=== PATIENT | male | born 1965 | race African-American/Black ===

== ENCOUNTER 2017-06-17 21:25 | Emergency (ER) | payer MEDICARE, OTHER ==
[~2017-06-17] VITALS: Ht 180.3 cm; Wt 89.8 kg
[2017-06-17 21:26] VITALS: BP 163/93
== END 2017-06-17 23:26 | disposition home or self-care (01) ==
LOC: ED 23:20
DX: S16.1XXA Strain of muscle, fascia and tendon at neck level, initial encounter (principal); S76.011A Strain of muscle, fascia and tendon of right hip, initial encounter; M47.892 Other spondylosis, cervical region; M62.838 Other muscle spasm; V73.6XXA Passenger on bus injured in collision with car, pick-up truck or van in traffic accident, initial encounter; Y93.89 Activity, other specified; Y99.8 Other external cause status; Y92.410 Unspecified street and highway as the place of occurrence of the external cause
CPT/HCPCS: 72050; 99284

== ENCOUNTER 2018-01-28 11:34 | Emergency (ER) | payer MEDICARE, OTHER ==
[~2018-01-28] VITALS: Ht 180.3 cm; Wt 83.1 kg
[2018-01-28 11:51] VITALS: BP 126/76
[2018-01-28] MEDS ORDERED: CYCL5TAB PO (12:04)
[2018-01-28] MEDS ORDERED: HYDR-3240 PO (12:04)
[2018-01-28] MEDS ORDERED: CYCLOBENZAPRINE 10 MG TABLET ONE (12:06)
[2018-01-28] MEDS ORDERED: KETOROLAC 30 MG/1 ML ONE (12:06)
[2018-01-28] MEDS ORDERED: CYCLOBENZAPRINE 10 MG TABLET PO ONE (12:30)
[2018-01-28] MEDS ORDERED: KETOROLAC 30 MG/1 ML IM ONE (12:30)
== END 2018-01-28 12:34 | disposition home or self-care (01) ==
LOC: ED 12:28
DX: S39.012A Strain of muscle, fascia and tendon of lower back, initial encounter (principal); X58.XXXA Exposure to other specified factors, initial encounter; Y93.89 Activity, other specified; Y92.89 Other specified places as the place of occurrence of the external cause; Y99.8 Other external cause status
CPT/HCPCS: 96372; 99283; J1885

== ENCOUNTER 2018-02-09 21:47 | Emergency (ER) | payer MEDICARE ==
[~2018-02-09] VITALS: Ht 177.8 cm; Wt 80.6 kg
[~2018-02-09 21:47] MED LIST: CYCL5TAB PO; HYDR-3240 PO
[2018-02-09 21:52] VITALS: BP 134/91
[2018-02-09] MEDS ORDERED: ACETAMINOPHEN 325 MG TABLET ONE (22:40)
[2018-02-09] MEDS ORDERED: ACETAMINOPHEN 325 MG TABLET PO ONE (23:00)
== END 2018-02-09 23:00 | disposition home or self-care (01) ==
LOC: ED 22:45
DX: M54.5 Low back pain (principal); F17.210 Nicotine dependence, cigarettes, uncomplicated; G89.29 Other chronic pain
CPT/HCPCS: 99282

== ENCOUNTER 2018-06-06 02:29 | Emergency (ER) | payer MEDICARE ==
[~2018-06-06] VITALS: Ht 180.3 cm; Wt 83.0 kg
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
[2018-06-06 03:47] LABS: MEAN CORPUSCULAR HEMOGLOBIN 31.5 pg (27.5-34.5); MEAN CORPUSCULAR HGB CONC 33.3 g/dL (33.2-36.2); MEAN CORPUSCULAR VOLUME 94.6 fL (81-97); MEAN PLATELET VOLUME 8.2 fL (7.4-10.4); PLATELET COUNT 247 x10^3/uL (130-400); RED BLOOD COUNT 4.58 x10^6/uL (4.38-5.82); RED CELL DISTRIBUTION WIDTH 14.4 % (9.4-14.8)
[2018-06-06 03:51] LABS: ALBUMIN 3.6 g/dL (3.4-5.0); ANION GAP 8 mmol/L (5-15); CALCIUM 8.6 mg/dL (8.5-10.1); CHLORIDE 107 mmol/L (98-107); CREATININE 1.07 mg/dL (0.7-1.3)
[2018-06-06 03:57] LABS: ACETAMINOPHEN < 2 mcg/mL (10-30); SALICYLATE LEVEL < 1.7 mg/dL (2.8-20.0)
--- NOTE | 2018-06-06 03:57 | NUR ---
PT RESTING ON GURNEY IN ROOM 2. CALM AND COOPERATIVE AT THIS TIME. PROVIDED WITH WARM BLANKET AND WATER. SITTER OUTSIDE DOOR, MONITORING PT. ROOM REMAINS SECURE.
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
[2018-06-06 04:35] LABS: BASOPHILS # (AUTO) 0.01 x10^3/uL (0-0.1); BASOPHILS % (AUTO) 0 % (0-1); EOSINOPHILS # (AUTO) 0.26 x10^3/uL (0-0.4); EOSINOPHILS % (AUTO) 5 % (1-7); LYMPHOCYTES % (AUTO) 24 % (22-44); MD SCAN; MONOCYTES # (AUTO) 0.68 x10^3/uL (0.2-0.8); MONOCYTES % (AUTO) 12 % (2-9); NEUTROPHILS # (AUTO) 3.41 x10^3/uL (1.8-6.8); NEUTROPHILS % (AUTO) 59 % (42-75)
[2018-06-06 05:11] LABS: AMPHETAMINE SCREEN, URINE Negative (Negative); BARBITURATE SCREEN, URINE Negative (Negative); BENZODIAZEPINE SCREEN, URINE Negative (Negative); CANNABINOID SCREEN, URINE Negative (Negative); COCAINE SCREEN, URINE Negative (Negative); METHADONE SCREEN, URINE Negative (Negative); OPIATE SCREEN, URINE Negative (Negative)
--- NOTE | 2018-06-06 05:33 | NUR ---
PER DR. LOUIS ([facility]) PT WILL BE PLACED ON A HOLD FOR PSYCHOSIS.
--- NOTE | 2018-06-06 05:36 | NUR ---
SPOKE TO PAUL ART ON 3E WHO STATED THEY WOULD BE TAKING THIS PT AFTER HIS INSURANCE IS VERIFIED, HOWEVER THAT CANNOT BE DONE UNTIL AFTER 629
--- NOTE | 2018-06-06 05:58 | NUR ---
PER 3E STAFF PT WILL HAVE INSURANCE VERIFIED BY DAY SHIFT IN ORDER TO GO TO THE FLOOR. STRAINER MILL OPERATOR DOES NOT KNOW HOW TO VERIFY INSURANCE FOR MEDICARE DAYS
--- NOTE | 2018-06-06 06:31 | NUR ---
PT NOW RESTING ON GURNEY WITH EYES CLOSED. RESPRIATIONS EVEN AND UNLABORED. ROOM REMAINS SECURE, SITTER OUTSIDE DOOR.
--- NOTE | 2018-06-06 07:06 | NUR ---
REPORT TO PAUL SORENSON
--- NOTE | 2018-06-06 07:10 | NUR ---
PT IS RESTING ON GURNEY WITH EYES CLOSED, RESPIRATIONS ARE EVEN AND UNLABORED. SITTER IS WITHIN DIRECT LINE OF SIGHT.
--- NOTE | 2018-06-06 08:05 | NUR ---
PT PLACED ON HOSPITAL BED FOR COMFORT. WAITING FOR ROOM ASSIGNMENT ON 3E OR ACCEPTANCE TO PSYCHE FACILITY. PO FLUIDS AT BEDSIDE.
--- NOTE | 2018-06-06 09:25 | NUR ---
VSS. PT ATE SMALL AMOUNT OF BREAKFAST. TAKING PO FLUIDS WELL. SITTER IS AT BEDSIDE.
--- NOTE | 2018-06-06 11:10 | NUR ---
Per Yohana, patient denied from [facility] because there is no accepting provider.
--- NOTE | 2018-06-06 11:10 | NUR ---
No admitting psych doctor for 3E.
--- NOTE | 2018-06-06 11:41 | NUR ---
RECEIVED REPORT FROM YAS MILLER
--- NOTE | 2018-06-06 12:22 | NUR ---
PT SLEEPING AT THIS TIME
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
--- NOTE | 2018-06-06 13:41 | NUR ---
diet tray ordered for pt. pt given 7-up.
--- NOTE | 2018-06-06 14:00 | NUR ---
PT GIVEN MEAL TRAY.
[2018-06-06] MEDS ORDERED: LORazepam 2 MG/ML, 1ML ONE (15:05)
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
[2018-06-06] MEDS ORDERED: LORazepam 2 MG/ML, 1ML IM ONE (16:00)
--- NOTE | 2018-06-06 16:26 | NUR ---
PT GIVEN MYKEL CRACKERS AND PUDDING. SITTER AT BEDSIDE.
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
--- NOTE | 2018-06-06 17:30 | NUR ---
DIET TRAY ORDERED. PT SLEEPING AT THIS TIME.
--- NOTE | 2018-06-06 18:19 | NUR ---
PT GIVEN MEAL TRAY AND ATE 100%. PT COOPERATIVE AT THIS TIME. ROOM SECURED AND SITTER OUTSIDE OF ROOM
--- NOTE | 2018-06-06 19:04 | NUR ---
REPORT GIVEN TO DAISY MILLER.
--- NOTE | 2018-06-06 19:07 | NUR ---
received report from PAUL Henderson, patient sleeping at this time.
--- NOTE | 2018-06-06 19:33 | NUR ---
patient awake and asking pudding. provided.
--- NOTE | 2018-06-06 19:59 | NUR ---
Throughput RN: Packet faxed to [facility], Shivam Ferreira, BORIS, RB, [facility] and [facility]
--- NOTE | 2018-06-06 20:14 | NUR ---
May from [facility] called and she is reviewing the chart
--- NOTE | 2018-06-06 20:36 | NUR ---
spoke to PAUL Nelson ( [facility] ) and gave report.
[2018-06-06 20:50] VITALS: BP 132/90
[2018-06-06] MEDS ORDERED: RISPERIDONE 1 MG TABLET PO SCH (21:00)
--- NOTE | 2018-06-06 21:13 | NUR ---
REM here to transport patient to [facility].
--- NOTE | 2018-06-06 21:15 | NUR ---
all belongings given back to [facility] staff.
[2018-06-06] MEDS ORDERED: LORazepam 1MG TABLET PO ONE (22:00)
== END 2018-06-06 21:18 ==
LOC: ED 05:46
DX: F32.0 Major depressive disorder, single episode, mild (principal); F10.120 Alcohol abuse with intoxication, uncomplicated; Y90.9 Presence of alcohol in blood, level not specified
CPT/HCPCS: 36415; 80048; 80307; 80329; 82040; 85025; 96372; 99285; J2060; 99284; G0480

== ENCOUNTER 2018-08-15 10:16 | Emergency (ER) | payer MEDICAID, MEDICARE ==
[~2018-08-15] VITALS: Ht 177.8 cm; Wt 81.6 kg
[2018-08-15 10:23] VITALS: BP 147/96
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
[2018-08-15 11:14] LABS: BASOPHILS # (AUTO) 0.03 x10^3/uL (0-0.1); BASOPHILS % (AUTO) 0 % (0-1); EOSINOPHILS # (AUTO) 0.14 x10^3/uL (0-0.4); EOSINOPHILS % (AUTO) 2 % (1-7); LYMPHOCYTES # (AUTO) 1.29 x10^3/uL (1-3.4); LYMPHOCYTES % (AUTO) 20 % (22-44); MD NO; MEAN CORPUSCULAR HEMOGLOBIN 31.4 pg (27.5-34.5); MEAN CORPUSCULAR HGB CONC 33.5 g/dL (33.2-36.2); MEAN CORPUSCULAR VOLUME 93.7 fL (81-97); MEAN PLATELET VOLUME 7.9 fL (7.4-10.4); MONOCYTES # (AUTO) 0.46 x10^3/uL (0.2-0.8); MONOCYTES % (AUTO) 7 % (2-9); NEUTROPHILS # (AUTO) 4.46 x10^3/uL (1.8-6.8); NEUTROPHILS % (AUTO) 70 % (42-75); PLATELET COUNT 258 x10^3/uL (130-400); RED CELL DISTRIBUTION WIDTH 14.9 % (9.4-14.8)
[2018-08-15 11:25] LABS: ALBUMIN 3.4 g/dL (3.4-5.0); ANION GAP 6 mmol/L (5-15); CALCIUM 8.7 mg/dL (8.5-10.1); CHLORIDE 104 mmol/L (98-107); SALICYLATE LEVEL < 1.7 mg/dL (2.8-20.0)
[2018-08-15 11:27] LABS: ACETAMINOPHEN < 2 mcg/mL (10-30); CREATININE 0.94 mg/dL (0.7-1.3)
[2018-08-15 11:28] LABS: AMPHETAMINE SCREEN, URINE Negative (Negative); BARBITURATE SCREEN, URINE Negative (Negative); BENZODIAZEPINE SCREEN, URINE Negative (Negative); CANNABINOID SCREEN, URINE Negative (Negative); COCAINE SCREEN, URINE Positive (Negative); METHADONE SCREEN, URINE Negative (Negative); OPIATE SCREEN, URINE Negative (Negative)
--- NOTE | 2018-08-15 12:17 | NUR ---
SPOKE W/ MD FROM [facility] WHO STATES THEY WILL TELEPSYCH PT SHORTLY. SI LUNCH TRAY LEFT W/ SITTER. PT TO BE PROVIDED W/ LUNCH ONCE SOC CMPD. ROOM REMAINS SECURE.
--- NOTE | 2018-08-15 12:26 | NUR ---
[facility] MD SPEAKING W/ PT AT THIS TIME.
--- NOTE | 2018-08-15 12:42 | NUR ---
SPOKE W/ SOC WHO STATES PT IS OKAY TO DC HOME. ERP NOTIFIED.
--- NOTE | 2018-08-15 13:14 | NUR ---
PER JUAN CARLOS DELGADO AND ERP DR. EVANS PT TO BE DC'D. PT PROVIDED W/ BELONGINGS. AWAITING DC PAPERWORK.
--- NOTE | 2018-08-15 13:21 | NUR ---
LOOKED FOR PT THROUGHOUT UNIT IN ALL ROOMS AND RR. PT NOT FOUND. GOWN THROWN ON THE GURNEY. ALL PERSONAL BELONGINGS GONE. PER SITTER PT WAS SEEN POWERWALKING OUT OF HOSPITAL.
== END 2018-08-15 13:24 | disposition left against medical advice (07) ==
LOC: ED 10:35
DX: F32.0 Major depressive disorder, single episode, mild (principal); M54.9 Dorsalgia, unspecified; G89.29 Other chronic pain; F20.9 Schizophrenia, unspecified; F17.200 Nicotine dependence, unspecified, uncomplicated
CPT/HCPCS: 36415; 80048; 80307; 80329; 82040; 85025; 99284; G0480